=== PATIENT | female | born 1995 | race African-American/Black ===

== ENCOUNTER 2018-07-22 16:33 | Inpatient (IN) | payer OTHER ==
[2018-07-22] MEDS ORDERED: SODIUM CHLORIDE 1,000 ML IV STA (16:40)
[2018-07-22] MEDS ORDERED: KETOROLAC TROMETHAMINE 30 MG/1 ML VIAL IVPUSH ONE (16:40)
[2018-07-22] MEDS ORDERED: ONDANSETRON 4 MG/2 ML VIAL IVPUSH ONE (16:40)
--- NOTE | 2018-07-22 16:42 | PDOC ---
Rapid Medical Evaluation Chief Complaint: Pain, Acute Time Seen by Provider: 07/22/18 16:39 Medical Evaluation: 07/22/18 16:40 Pt c/o: n/v/d/ mid abd pain x 1 day, similar s/s w/ family members Pt on brief exam: low grade temp, other vs stable Pt ordered for: labs Pt to proceed to the ED Discharge Disposition - Diagnosis Abdominal pain - Discharge Dispostion Condition at time of disposition: Stable - Referrals - Patient Instructions - Post Discharge Activity
--- NOTE | 2018-07-22 18:53 | PDOC ---
Attending Attestation - HPI HPI: 07/22/18 19:52 The patient is a 22 year old female with no PMH who presents to the ED with abdominal pain, multiple episodes of nonbloody, nonbilious vomit and multiple episodes of watery, NB loose stool since this morning. Patient localizes the abdominal pain in the epigastric area and right upper quadrant, sharp in nature , and intermittent. Denies recent travel or sick contact. Allergy: Tylenol Surgical: None reported. Social: Social EtOH use. No reported drug or cigarette use. PMD: Dr. Markel Bautista - Physicial Exam PE: 07/22/18 19:49 ADULT PHYSICAL EXAM Constitutional: Awake, alert, oriented. No acute distress. Head: Normocephalic. Atraumatic Eyes: PERRL. EOMI. Conjunctivae are not pale. ENT: (+) Dry mucous membranes. Posterior pharynx without exudates or erythema. Uvula midline. Neck: Supple. Full ROM. No lymphadenopathy. Cardiovascular: (+) Tachycardic. Regular rhythm. S1, S2 regular. Distal pulses are 2+ and symmetric. Pulmonary/Chest: No evidence of respiratory distress. Clear to auscultation bilaterally No wheezing, rales or rhonchi. Abdominal: Soft, acutely tender in the epigastric area and right upper quadrant. No peritoneal signs. (+) Positive Etienne's sign. No rebound, guarding or rigidity. No organomegaly. No palpable masses. Good bowel sounds. Back: No CVA tenderness. Musculoskeletal: No edema. No cyanosis. No clubbing. Full range of motion in all extremities. Nocalf tenderness. Radial/pedal pulses are intact and 2+ bilaterally Skin: Skin is warm and dry. No petechiae. No purpura. Neurological: Alert and oriented to person, place, and time. Cranial nerves II -XII are grossly intact. Normal speech. Strength is grossly symmetric. No sensory deficits. Psychiatric: Good eye contact. Normal interaction, affect and behavior. <Argelia Betancourt - Last Filed: 07/22/18 19:58> - Resident Resident Name: Agustina Huber - ED Attending Attestation I have performed the following: I have examined & evaluated the patient, The case was reviewed & discussed with the resident, I agree w/resident's findings & plan, Exceptions are as noted - Medical Decision Making 07/22/18 18:53 I, Dr. Sofie Eaton, DO, attest that this document has been prepared under my direction and personally reviewed by me in its entirety. I further attest, that it accurately reflects all work, treatment, procedures and medical decision -making performed by me. 07/22/18 19:27 a/p: 22yo female with n/v/d today -last po intake was last night -pt with nbnb vomitus and nb diarrhea -RUQ ttp on exam, +murphys -bedside ultrasound +gallstones and sonographic murphys -will obtain official ultrasound -labs -npo -ivf hydration 07/22/18 21:22 pt with gallstones and mildly elevated ast case discussed with Dr. Arnold who has seen the patient and admits her to his service <Sofie Eaton - Last Filed: 07/22/18 21:28>
--- NOTE | 2018-07-22 19:00 | PDOC ---
History of Present Illness - General Chief Complaint: Pain, Acute Stated Complaint: SENT BY PCP Time Seen by Provider: 07/22/18 16:39 - History of Present Illness Initial Comments: 07/22/18 18:51 The patient is a 22 year old female with no reported significant PMH who presents to the ED c/o acute onset of abdominal pain. Pain started this morning when patient woke up and is sharp/punching, epigastric without any radiation. Endorses six episodes of NBNB emesis as well as multiple episodes of watery loose non-bloody stools. The patient denies chest pain, shortness of breath. The patient denies numbness/tingling. The patient denies cough, sore throat, runny nose, headache. Allergy: Tylenol (edema) Surgical: C/S Social: social alcohol denies other toxic habits PMD: Dr. Markel Bautista M.D. Past History - Past Medical History Allergies/Adverse Reactions: Allergies Allergy/AdvReac Type Severity Reaction Status Date / Time acetaminophen Allergy Severe Swelling Verified 07/22/18 19:18 Home Medications: Ambulatory Orders NK [No Known Home Medication] 07/22/18 - Suicide/Smoking/Psychosocial Hx Smoking History: Never smoked Have you smoked in the past 12 months: No Information on smoking cessation initiated: No Hx Alcohol Use: No Drug/Substance Use Hx: No Review of Systems - Review of Systems Constitutional: No: Chills, Fever HEENTM: No: Recent change in vision Respiratory: No: Cough, Shortness of Breath Cardiac (ROS): No: Lightheadedness, Palpitations, Syncope ABD/GI: Yes: Diarrhea, Nausea, Vomiting, Abdominal cramping. No: Constipated : No: Burning, Dysuria *Physical Exam - Vital Signs Last Vital Signs Temp Pulse Resp BP Pulse Ox 100.0 F H 104 H 18 124/83 100 07/22/18 16:39 07/22/18 16:39 07/22/18 16:39 07/22/18 16:39 07/22/18 16:39 - Physical Exam General Appearance: Yes: Nourished, Appropriately Dressed HEENT: positive: Normal Voice, Hearing Grossly Normal Neck: positive: Trachea midline, Supple Respiratory/Chest: positive: Lungs Clear, Normal Breath Sounds. negative: Rapid RR, Crackles, Rales, Stridor, Wheezing Cardiovascular: positive: S1, S2. negative: Edema, JVD Gastrointestinal/Abdominal: positive: Soft, Other (Epigastric & RUQ TTP, (+) sonographic Etienne's sign). negative: Guarding, Rebound ED Treatment Course - LABORATORY CBC & Chemistry Diagram: 07/22/18 19:05 07/22/18 17:54 - ADDITIONAL ORDERS Additional order review: 07/22/18 17:54 RBC Cancelled MCV Cancelled MCHC Cancelled RDW Cancelled MPV Cancelled Neutrophils % Cancelled Lymphocytes % Cancelled Monocytes % Cancelled Eosinophils % Cancelled Basophils % Cancelled Medical Decision Making - Medical Decision Making 07/22/18 19:44 22 year old female with abdominal pain. Febrile (100) and tachycardic (HR 104) @ presentation. Epigastric, RUQ TTP, (+) Etienne's sign on PE and sonographically. Bedside U/S shows cholelithiasis. Will obtain formal GB ultrasound. Also consider viral gastroenteritis, early appendicitis, pancreatitis. IV Fluids, Motrin for fever (patient Tylenol allergic), Morphine for pain. Reassess. 07/22/18 21:02 GB ultrasound shows 1.22 cm stone, normal sized CBD Patient reassessed @ bedside, pain improved. Dr. Arnold in ED, will evaluate patient in bedside 07/22/18 21:21 Patient to OR tomorrow 07/22/18 21:41 Patient reassessed @ bedside Counseled on plan of care Case d/w with patient's mother in law, Amairani, with patient @ bedside Patient admitted to Dr. Arnold, Med-Surg, Cefoxitin, NPO @ midnight *DC/Admit/Observation/Transfer Diagnosis at time of Disposition: Abdominal pain - Discharge Dispostion Condition at time of disposition: Stable - Referrals Referrals: Markel Bautista MD [Primary Care Provider] - - Patient Instructions - Post Discharge Activity
[2018-07-22 19:03] LABS: ALBUMIN 3.9 g/dl (3.4-5.0); ALK PHOS 104 U/L (45-117); ANION GAP 6 MMOL/L (8-16); BILIRUBIN,TOTAL 0.8 mg/dL (0.2-1); BLOOD UREA NITROGEN 13 mg/dL (7-18); CALCIUM 8.9 mg/dL (8.5-10.1); CHLORIDE 106 mmol/L (98-107); CO2 23 mmol/L (21-32); CREATININE 0.9 mg/dL (0.55-1.3); GLUCOSE,RANDOM 89 mg/dL (74-106); LIPASE 58 U/L (73-393); POTASSIUM 5.6 mmol/L (3.5-5.1); SGOT/AST 59 U/L (15-37); SGPT/ALT 30 U/L (13-61); SODIUM 135 mmol/L (136-145); TOT PROT 8.2 g/dl (6.4-8.2)
[2018-07-22] MEDS ORDERED: morphine CARPU-JECT 2 MG/1 ML DISP.SYRIN IVPUSH ONE (19:06)
[2018-07-22] MEDS ORDERED: ACETAMINOPHEN 1000 MG/100 ML VIAL (NON FORMULARY) IVPB ONE (19:07)
[2018-07-22] MEDS ORDERED: MORPHINE SULFATE 2 MG/ML VIAL ONE ×2 (19:11→22:36)
[2018-07-22] MEDS ORDERED: ONDANSETRON 4 MG/2 ML VIAL ONE (19:11)
[2018-07-22] MEDS ORDERED: ACETAMINOPHEN INJECTION 100 ML IVPB ONE (19:11)
[2018-07-22 19:18] LABS: BASO % 0.5 % (0-2.0); EOS % 0.2 % (0-4.5); HEMATOCRIT 43.4 % (32.4-45.2); HEMOGLOBIN 14.7 GM/dL (10.7-15.3); LYMPH % 3.6 % (8-40); MCH 30.4 pg (25.7-33.7); MCHC 33.8 g/dl (32.0-36.0); MEAN PLT VOLUME 9.4 fl (7.5-11.1); MONO % 5.7 % (3.8-10.2); PLATELET COUNT 241 K/MM3 (134-434); RBC 4.82 M/mm3 (3.60-5.2); WHITE BLOOD COUNT 9.4 K/mm3 (4.0-10.0)
[2018-07-22 19:29] LABS: HCG,QUALITATIVE URINE Negative
[2018-07-22 21:25] LABS: URINE APPEARANCE CLEAR; URINE COLOR YELLOW
[2018-07-22 21:26] LABS: PH,URINE 5.5 (5.0-8.0); URINE BILIRUBIN NEGATIVE (NEGATIVE); URINE GLUCOSE (UA) NEGATIVE (NEGATIVE); URINE KETONE 40 mg/dl (NEGATIVE); URINE NITRITE NEGATIVE (NEGATIVE); URINE PROTEIN TRACE (NEGATIVE)
[2018-07-22 21:27] LABS: URINE LEUK ESTERASE SMALL (NEGATIVE)
[2018-07-22] MEDS ORDERED: CEFOXITIN SODIUM 2 GM in DEXTROSE 5%-WATER - 100 ML IVPB ONE (21:29)
[2018-07-22] MEDS ORDERED: CEFOXITIN SODIUM/DEXTROSE,ISO 2 GM/50 ML BAG IVPB ONE (21:42)
--- NOTE | 2018-07-22 21:55 | HP ---
Admitting History and Physical - Admission Chief Complaint: abdominal pain History of Present Illness: 22 yo female PMH obesity presents to the ED complaining of acute onset of abdominal pain for 1 day. Pain started this morning when patient woke up and is sharp/punching, RUQ and epigastric without any radiation. she reports a long standing episodic pain associated with meals she attributed to gas pain. Similar severe episode prompted a visit to [facility] but she was discharged without imaging on a H2 marilyn. She endorses six episodes of NBNB emesis as well as multiple episodes of watery loose non-bloody stools. US showed a large stone at the neck of GB. We were called to assess. History Source: Patient, Medical Record Limitations to Obtaining History: No Limitations - Past Medical History Hepatobiliary: Yes: Cholelithiasis ...LMP: 03/23/18 ...: No Psych: Yes: Depression Additional Past Medical History: obesity - Past Surgical History Past Surgical History: Yes: - Smoking History Smoking history: Never smoked Have you smoked in the past 12 months: No - Alcohol/Substance Use Hx Alcohol Use: No History of Substance Use: reports: None - Social History ADL: Independent History of Recent Travel: No Home Medications - Allergies Allergies/Adverse Reactions: Allergies Allergy/AdvReac Type Severity Reaction Status Date / Time acetaminophen Allergy Severe Swelling Verified 07/22/18 19:18 - Home Medications Home Medications: Ambulatory Orders NK [No Known Home Medication] 07/22/18 Physical Examination Vital Signs: Vital Signs Temperature 100.0 F H 07/22/18 16:39 Pulse Rate 104 H 07/22/18 16:39 Respiratory Rate 18 07/22/18 16:39 Blood Pressure 124/83 07/22/18 16:39 O2 Sat by Pulse Oximetry (%) 100 07/22/18 16:39 Constitutional: Yes: No Distress, Calm, Obese Eyes: Yes: Conjunctiva Clear, EOM Intact HENT: Yes: Atraumatic, Normocephalic Neck: Yes: Supple, Trachea Midline Cardiovascular: Yes: Regular Rate and Rhythm, S1, S2 Respiratory: Yes: Regular, CTA Bilaterally Gastrointestinal: Yes: Normal Bowel Sounds, Soft, Abdomen, Obese, Tenderness ( RUQ exquites tenderness with +murphys sign), Vomiting. No: Ascites, Distention , Hernia ...Rectal Exam: No: Guaiac Positive, Guaiac Trace Renal/: No: CVA Tenderness - Left, CVA Tenderness - Right Musculoskeletal: No: Muscle Pain, Muscle Weakness Extremities: No: Cool, Cyanosis Edema: No Peripheral Pulses WNL: Yes Peripheral Pulses: Left Radial: 2+, Right Radial: 2+, Left Doralis Pedis: 2+, Right Dorsalis Pedis: 2+, Left Femoral: 2+, Right Femoral: 2+ Integumentary: No: Jaundice, Rash, Skin Tear Neurological: Yes: Alert, Oriented Psychiatric: Yes: Alert, Oriented Labs: CBC, BMP 07/22/18 19:05 07/22/18 17:54 Imaging - Results Ultrasound: Report Reviewed, Image Reviewed (large gallstone 1.2cm, no stigmata of acute cholecystits) Problem List - Problems (1) Calculus of bile duct w/o obstruction, cholangitis, or cholecystitis Assessment/Plan: 22 yo female with Biliary colic, intractable RUQ abdominal pain with nausea and vomiting NPO and IVF hydration IV antibiotics antiematic therapy Adequate analgesia OR for Laparoscopic Cholecystectomy Discussed with patient risks, benefits and alternatives of laparoscopic possible open cholecystectomy, including but not limited to bleeding, infection , injury to adjacent structures, leak or injury, intraabdominal abscess, incisional hernia, need for further procedures, ; alternatives include antibiotics, delayed or no surgery - risks of this include failure of nonoperative therapy, perforation, sepsis, recurrence, . Patient desires to proceed with operation - will take to OR for above. Informed consent signed for same. Code(s): K80.50 - CALCULUS OF BILE DUCT W/O CHOLANGITIS OR CHOLECYST W/O OBST (2) RUQ abdominal pain Code(s): R10.11 - RIGHT UPPER QUADRANT PAIN (3) Nausea and vomiting Code(s): R11.2 - NAUSEA WITH VOMITING, UNSPECIFIED Qualifiers: Vomiting type: bilious vomiting Qualified Code(s): R11.14 - Bilious vomiting (4) Obesity (BMI 30.0-34.9) Code(s): E66.9 - OBESITY, UNSPECIFIED (5) History of delivery Code(s): Z98.891 - HISTORY OF UTERINE SCAR FROM PREVIOUS SURGERY
[2018-07-22] MEDS ORDERED: ACETAMINOPHEN 325 MG TABLET (FP) PO PRN (21:56)
[2018-07-22] MEDS ORDERED: morphine SULFATE 4 MG/ML VIAL IVPUSH PRN (21:56)
[2018-07-22] MEDS ORDERED: IBUPROFEN 600 MG TABLET (FP) PO PRN (21:56)
[2018-07-22] MEDS ORDERED: ONDANSETRON 4 MG/2 ML VIAL IVPUSH PRN (21:56)
[2018-07-22 22:07] LABS: URINE BACTERIA 3+ /hpf (NEGATIVE); URINE WBC 0-3 /hpf (0-5)
[2018-07-22] MEDS: SODIUM CHLORIDE 1,000 ML IV SCH (22:26)
[2018-07-23] MEDS ORDERED: IBUPROFEN 600 MG TABLET (FP) PO ONE (02:06)
[2018-07-23] MEDS: SODIUM CHLORIDE 1,000 ML IV SCH ×2 (02:51→17:30)
[2018-07-23 03:47] VITALS: BMI 34.4
[2018-07-23] MEDS ORDERED: CEFOXITIN SODIUM/DEXTROSE,ISO 2 GM/50 ML BAG IVPB ONE (05:00)
[2018-07-23 06:54] LABS: HEMATOCRIT 37.4 % (32.4-45.2); HEMOGLOBIN 12.7 GM/dL (10.7-15.3); MCH 30.3 pg (25.7-33.7); MCHC 34.1 g/dl (32.0-36.0); MEAN CELL VOLUME 89.1 fl (80-96); MEAN PLT VOLUME 9.1 fl (7.5-11.1); PLATELET COUNT 206 K/MM3 (134-434); RBC 4.19 M/mm3 (3.60-5.2); RDW 12.8 % (11.6-15.6); WHITE BLOOD COUNT 6.4 K/mm3 (4.0-10.0)
[2018-07-23 07:13] LABS: INR 1.27 (0.83-1.09)
[2018-07-23 07:33] LABS: ALBUMIN 3.1 g/dl (3.4-5.0); ALK PHOS 80 U/L (45-117); ANION GAP 7 MMOL/L (8-16); BILIRUBIN,TOTAL 0.9 mg/dL (0.2-1); BLOOD UREA NITROGEN 11 mg/dL (7-18); CALCIUM 7.8 mg/dL (8.5-10.1); CHLORIDE 107 mmol/L (98-107); CO2 23 mmol/L (21-32); CREATININE 0.7 mg/dL (0.55-1.3); GLUCOSE,RANDOM 91 mg/dL (74-106); LIPASE 67 U/L (73-393); POTASSIUM 3.7 mmol/L (3.5-5.1); SGOT/AST 13 U/L (15-37); SGPT/ALT 19 U/L (13-61); SODIUM 136 mmol/L (136-145); TOT PROT 6.2 g/dl (6.4-8.2)
[2018-07-23] MEDS ORDERED: BUPIVACAINE HCL/PF 0.5% (5MG/ML) 10 ML VIAL ONE (13:19)
[2018-07-23] MEDS ORDERED: BENZOIN TINCTURE SWABSTICK TP ONE (13:19)
[2018-07-23] MEDS ORDERED: PROPOFOL 20 ML ONE (14:03)
[2018-07-23] MEDS ORDERED: MIDAZOLAM HCL 2 MG/2 ML SINGLE DOSE VIAL ONE (14:03)
[2018-07-23] MEDS ORDERED: SUCCINYLCHOLINE CHLORIDE 200 MG/10 ML VIAL ONE (14:03)
[2018-07-23] MEDS ORDERED: MAGNESIUM SULF 50% (8.12 MEQ/2 ML-1 GM VIAL) ONE (14:07)
[2018-07-23] MEDS ORDERED: IBUPROFEN 800 MG/8 ML IJ IVPB ONE (14:15)
[2018-07-23] MEDS ORDERED: DEXMEDETOMIDINE HCL 200 MCG/2 ML IVPB ONE (14:15)
[2018-07-23] MEDS ORDERED: CEFOXITIN SODIUM 2 GM IVPB ONE (14:24)
[2018-07-23] MEDS ORDERED: GLYCOPYRROLATE 0.2 MG/1 ML VIAL ONE ×2 (15:25)
[2018-07-23] MEDS ORDERED: NEOSTIGMINE METHYLSULFATE 0.5 MG/ML - 10 ML MDV ONE (15:26)
[2018-07-23] MEDS ORDERED: BUPIVACAINE HCL/PF (5 MG/ML) 30 ML VIAL IJ ONE ×3 (15:30)
--- NOTE | 2018-07-23 15:49 | OP ---
Operative Note - Note: Operative Date: 07/23/18 Pre-Operative Diagnosis: Biliary colic, symptomatic cholelithiasis Operation: laparoscopic cholecystectomy Findings: small gall bladder with large stone Post-Operative Diagnosis: Same as Pre-op Surgeon: Doni Arnold Adobe Layer: Darek Osuna Anesthesiologist/SHIP STEWARD: Jann Grace Anesthesia: General, Local (0.5% marcaine 20ml) Estimated Blood Loss (mls): 10 Fluid Volume Replaced (mls): 1,100 Operative Report Dictated: Yes
[2018-07-23] MEDS ORDERED: IBUPROFEN 600 MG TABLET (FP) PO PRN (16:58)
[2018-07-23] MEDS ORDERED: morphine SULFATE 4 MG/ML VIAL ONE (17:04)
[2018-07-23] MEDS: morphine SULFATE 4 MG/ML VIAL IVPUSH PRN ×2 (17:05→21:07)
[2018-07-23] MEDS: ONDANSETRON 4 MG/2 ML VIAL IVPUSH PRN (21:07)
[2018-07-24] MEDS: morphine SULFATE 4 MG/ML VIAL IVPUSH PRN ×2 (01:11→06:52)
[2018-07-24] MEDS: SODIUM CHLORIDE 1,000 ML IV SCH (06:52)
--- NOTE | 2018-07-24 07:57 | DS ---
Physical Examination Vital Signs: Vital Signs Temperature 99.2 F 07/24/18 02:15 Pulse Rate 92 H 07/24/18 02:15 Respiratory Rate 20 07/24/18 02:15 Blood Pressure 119/70 07/24/18 02:15 O2 Sat by Pulse Oximetry (%) 100 07/23/18 21:00 Vital Signs Period Temp Pulse Resp BP Sys/Jean Pulse Ox Last 24 Hr 97.8 F-99.4 F 74-92 17-20 114-119/59-70 100-100 Findings/Remarks: patient was stable overnight, tolerated diet, reported itching after morphine. Constitutional: Yes: Well Nourished, No Distress, Calm Eyes: Yes: Conjunctiva Clear, EOM Intact HENT: Yes: Atraumatic, Normocephalic Neck: Yes: Supple, Trachea Midline Cardiovascular: Yes: Regular Rate and Rhythm, S1, S2 Respiratory: Yes: Regular, CTA Bilaterally Gastrointestinal: Yes: Normal Bowel Sounds, Soft ...Rectal Exam: Yes: Deferred Renal/: No: CVA Tenderness - Left, CVA Tenderness - Right Breast(s): No: Dimpling, Mass Musculoskeletal: No: Joint Swelling, Muscle Pain, Muscle Weakness Extremities: No: Cool, Cyanosis Edema: No Peripheral Pulses WNL: Yes Peripheral Pulses: Left Radial: 2+, Right Radial: 2+, Left Doralis Pedis: 2+, Right Dorsalis Pedis: 2+, Left Femoral: 2+, Right Femoral: 2+ Integumentary: No: Jaundice, Rash, Skin Tear Neurological: Yes: Alert, Oriented Psychiatric: Yes: Alert, Oriented Labs: CBC, BMP 07/23/18 06:00 07/23/18 06:00 Discharge Summary Reason For Visit: CHOLECYSTITIS Current Active Problems Abdominal pain (Acute) Calculus of bile duct w/o obstruction, cholangitis, or cholecystitis (Acute) History of delivery (Acute) Nausea and vomiting (Acute) Obesity (BMI 30.0-34.9) (Acute) RUQ abdominal pain (Acute) Procedures: Principal: laparoscopic cholecystetcomy Hospital Course: admitted from ED for urgent surgery. uneventful procedure. stable for discharge home Condition: Improved - Instructions Diet, Activity, Other Instructions: Postoperative instructions: You had a laparoscopic cholecystectomy on 07/23/[address] Doni Arnold of [facility]. Activity: Resume your usual activities gradually, but no heavy exertion or lifting more than 10-15 pounds for 1 month. Remove dressings 48 hours after surgery; sticky tapes underneath will fall off by themselves. You may shower daily starting then, just pat the incision areas dry. No bath or swimming until skin incisions have healed. Eat lightly at first, but advance to your usual diet as tolerated. Pain: For pain, you may use and alternate Tylenol (acetaminophen) 1-2 pills and/ or ibuprofen 200 mg (1-3 pills) every 6 hours each as needed; this means that you can take one OR the other at 3-hour intervals. If you are prescribed a Tylenol/narcotic combination for severe pain, use it instead of plain Tylenol as needed and switch back when your pain starts decreasing. Do not take more than 4000mg of acetaminophen in a day. Take medications as prescribed or indicated on the labeling. Follow-up: Call Dr. Arnold' office at [phone] to make your postop appointment (Friday in approximately 2 weeks after surgery). Clinic is held in the [facility] on the first floor of [facility]. Call the office if you have: * increasing pain not responsive to pain medication * fever of 101F or higher * vomiting * unusual or increasing bleeding or drainage from wounds * increasing redness or swelling at wound sites * inability to urinate Also, see your primary medical doctor within 1-2 weeks. Disposition: HOME - Home Medications Comprehensive Discharge Medication List: Ambulatory Orders Amox-Tr/K Cl [Augmentin - 875Mg Tablet] 1 tab PO BID #14 tablet 07/23/18 Oxycodone HCl 5 mg PO Q6H PRN 3 Days #40 tablet MDD 5 07/23/18
[2018-07-24] MEDS ORDERED: diphenhydrAMINE HCL 25 MG CAPSULE (FP) PO ONE (08:48)
[2018-07-24] MEDS: ONDANSETRON 4 MG/2 ML VIAL IVPUSH PRN (10:52)
[2018-07-24 11:56] VITALS: BP 116/63; PULSE 75; TEMP 99.4
--- NOTE | 2018-07-25 09:21 | OP ---
DATE OF OPERATION: 07/23/2018 PREOPERATIVE DIAGNOSIS: Biliary colic, symptomatic cholelithiasis, chronic cholecystitis. POSTOPERATIVE DIAGNOSIS: Biliary colic, symptomatic cholelithiasis, chronic cholecystitis. PROCEDURE: Laparoscopic cholecystectomy. ATTENDING SURGEON: Doni Arnold MD COMMISSARY SUPERINTENDENT: Darek Osuna MD ANESTHESIA: Jann Grace CRNA ANESTHESIA TYPE: General with local. Local consisted of 0.5% Marcaine a total of 20 mL given to the port sites. ESTIMATED BLOOD LOSS: 10 mL. IV FLUID ADMINISTERED: 1100 mL. SPECIMEN: Small gallbladder with stone. BRIEF FINDINGS: The patient had a small gallbladder thin walled with a large stone. INDICATIONS: The patient is a 22-year-old female presenting with a history of multiple episodes of biliary colic and unremitting symptomatic cholelithiasis, which was evaluated on ultrasound and noted to have a stone impact at the neck. She was counseled regarding risks, benefits, and alternatives to removal of the gallbladder. She signed informed consent and was taken for the procedure. DESCRIPTION OF PROCEDURE: The patient was brought to the operating room. She was placed in supine position on the operating room table with the left arm extended at 90 degrees perpendicular to the body's midline axis and the right arm tucked. The lower extremity had SCDs placed. The patient was induced with general anesthesia and endotracheally intubated without incident by Anesthesia. We began first with an anterior abdominal wall clip, prep, and drape in standard surgical fashion. The patient then had a formal time-out identifying the operative site and procedure. With this complete, we began with a supraumbilical approach Vivian entry into the abdomen inscribed on the skin and incised with a 15-blade scalpel. It was deepened and widened then through the subcutaneous tissue with Bovie cautery to the midline fascia, which was elevated, and 0 Vicryl was then laid in as a figure of eight. A blunt entry was made into the abdomen using a clamp, and a 12-mm Vivian was then put into the abdomen, and pneumoperitoneum was established to 15 mmHg. We began first with inspection of the port entry site, which appeared atraumatic. The gallbladder itself appeared collapsed and walled in the right upper quadrant. This was identified. Additional ports were placed at the subxiphoid position and 2 in the right lateral abdomen. The gallbladder was then retracted cranially and towards the left shoulder, and the infundibulum was retracted towards the right abdomen. With this, the cystic structures could easily be identified. Planes were developed to isolate the cystic duct and artery. They were identified and then 5-mm clips were placed to allow for transection. Endo Martínez were used to transect both structures after the critical view of safety was identified on the hepatic plate. After the cystic structures were controlled, the gallbladder was elevated from the hepatic bed on segments 4 and 5 of the liver. This was done towards the dome and then the gallbladder was retrieved from the abdomen using an EndoCatch bag, a size 10 mm from the umbilical port after reciting to the subxiphoid position with the camera. After retrieval of the gallbladder, it was passed off for final pathologic diagnosis. The liver bed was then inspected for hemostasis and obtained with Bovie cautery where appropriate. The site was suctioned of bloody effluent and then the trocars were removed under direct visualization, and pneumoperitoneum was relieved. With the pneumoperitoneum relieved, the umbilical port was ablated with the figure of eight that was laid in preoperatively. The sites were then irrigated. Additional local anesthetic was placed at the port sites for pain control, and the skin was closed using 4-0 Monocryl in interrupted fashion and subcuticular fashion at the umbilicus. Sterile dressing, which was comprised of Dermabond, was placed on the skin. The patient was awoken from general anesthesia having tolerated the procedure well. She was returned to recovery in stable condition. MD VENANCIO Shepard/[id number]
--- NOTE | 2018-07-27 18:50 | PATH ---
Surgical Pathology Report Patient Name: TUCKER CLARK Med. Rec. #: [id number] /Age/Gender: 1995 (Age: 22) / F Account: [id number] Location: [facility] MED/SURG Taken: 07/23/2018 Received: 07/24/2018 Reported: 07/27/2018 Physicians: Doni Arnold M.D. Specimen(s) Received GALLBLADDER Clinical History Cholecystitis, biliary colic, chronic cholecystitis Final Diagnosis GALLBLADDER, LAPAROSCOPIC CHOLECYSTECTOMY: CHRONIC CHOLECYSTITIS WITH CHOLELITHIASIS. Electronically Signed Carlie Puente M.D. Gross Description Received in formalin, labeled "gallbladder," is a 5.0 x 3.3 x 3.3 cm. gallbladder with a 0.2 cm. in length portion of cystic duct attached. The outer surface is green and varies from smooth to shaggy. The lumen contains green, tenacious bile as well as 3 yellow, spherical, bosselated choleliths averaging 0.4 cm in diameter. The mucosa is dark green and velvety. The wall of the gallbladder measures 0.1 cm. in thickness. Developer Architect sections are submitted in one cassette. 07/25/2018 [facility]07/25/2018
== END 2018-07-24 11:45 | disposition home or self-care (01) | DRG 263 ==
LOC: JER 16:33 → JERBED 21:21 → OBSVTOIN 21:56 → J7W 07-23 02:38
PROC: 0FT44ZZ Resection of Gallbladder, Percutaneous Endoscopic Approach (ICD-10-PCS; principal; 2018-07-23 15:00)
DX: K80.44 Calculus of bile duct with chronic cholecystitis without obstruction (principal); F32.9 Major depressive disorder, single episode, unspecified; E66.9 Obesity, unspecified; Z68.34 Body mass index [BMI] 34.0-34.9, adult; R10.11 Right upper quadrant pain; R11.14 Bilious vomiting; Z98.891 History of uterine scar from previous surgery
CPT/HCPCS: 36415; 76705-TC; 80053; 81003; 83605; 83690; 84703; 85025; 85027; 85610; 86850; 86900; 86901; 87086; 88304-TC; 94760; 99285-25; G0378; J7030

== ENCOUNTER 2018-12-24 16:55 | Emergency (ER) | payer OTHER ==
[2018-12-24 17:14] VITALS: BP 124/65; PULSE 84; TEMP 98.9; BMI 36.7
--- NOTE | 2018-12-24 17:14 | PDOC ---
Rapid Medical Evaluation Chief Complaint: Nausea/Vomiting Time Seen by Provider: 12/24/18 17:11 Medical Evaluation: Allergies Allergy/AdvReac Type Severity Reaction Status Date / Time acetaminophen Allergy Severe Swelling Verified 07/22/18 19:18 12/24/18 17:12 23 year old female c/o NVD and epigastric area pain for one week. PE" patient alert ox3, epIGASTRIC AND RUQ area pain A: ABDOMINAL PAIN P: labs UA urine culture Discharge Disposition - Diagnosis Abdominal pain Qualifiers: Abdominal location: unspecified location Qualified Code(s): R10.9 - Unspecified abdominal pain - Referrals - Patient Instructions - Post Discharge Activity
[2018-12-24] MEDS ORDERED: SODIUM CHLORIDE 1,000 ML IV STA (18:22)
[2018-12-24] MEDS ORDERED: MAG HYDROX/AL HYDROX/SIMETH 30 ML UNIT-DOSE CUP PO ONE (18:22)
[2018-12-24] MEDS ORDERED: ONDANSETRON 4 MG/2 ML VIAL IVPUSH ONE (18:22)
[2018-12-24] MEDS ORDERED: FAMOTIDINE 20 MG/50 ML IVPB 20 MG/50 ML MG IVPB ONE ×2 (18:22→19:14)
[2018-12-24 19:13] LABS: EOS % 1.6 % (0-4.5); HEMATOCRIT 40.6 % (32.4-45.2); HEMOGLOBIN 13.3 GM/dL (10.7-15.3); LYMPH % 29.9 % (8-40); MCH 29.6 pg (25.7-33.7); MCHC 32.8 g/dl (32.0-36.0); MEAN CELL VOLUME 90.2 fl (80-96); MEAN PLT VOLUME 9.3 fl (7.5-11.1); MONO % 9.6 % (3.8-10.2); NEUT % 57.9 % (42.8-82.8); PLATELET COUNT 283 K/MM3 (134-434); RDW 13.3 % (11.6-15.6); WHITE BLOOD COUNT 9.3 K/mm3 (4.0-10.0)
[2018-12-24] MEDS ORDERED: MAG HYDROX/AL HYDROX/SIMETH 30 ML UNIT-DOSE CUP ONE (19:13)
[2018-12-24] MEDS ORDERED: ONDANSETRON 4 MG/2 ML VIAL ONE (19:14)
[2018-12-24 19:36] LABS: URINE APPEARANCE CLEAR; URINE BILIRUBIN NEGATIVE (NEGATIVE); URINE COLOR YELLOW; URINE GLUCOSE (UA) NEGATIVE (NEGATIVE); URINE KETONE NEGATIVE (NEGATIVE); URINE LEUK ESTERASE NEGATIVE (NEGATIVE); URINE NITRITE NEGATIVE (NEGATIVE); URINE PROTEIN NEGATIVE (NEGATIVE); URINE UROBILINOGEN 0.2 mg/dL (0.2-1.0)
[2018-12-24 19:50] LABS: ALBUMIN 3.7 g/dl (3.4-5.0); BILIRUBIN,TOTAL 0.5 mg/dL (0.2-1); BLOOD UREA NITROGEN 9.6 mg/dL (7-18); CALCIUM 9.1 mg/dL (8.5-10.1); CREATININE 0.9 mg/dL (0.55-1.3); POTASSIUM 4.6 mmol/L (3.5-5.1); TOT PROT 7.3 g/dl (6.4-8.2)
--- NOTE | 2018-12-24 20:26 | PDOC ---
History of Present Illness - General Chief Complaint: Nausea/Vomiting Stated Complaint: NAUSEA/ABD PAIN Time Seen by Provider: 12/24/18 17:11 History Source: Patient Exam Limitations: No Limitations Past History - Past Medical History Allergies/Adverse Reactions: Allergies Allergy/AdvReac Type Severity Reaction Status Date / Time acetaminophen Allergy Severe Swelling Verified 12/24/18 17:12 Home Medications: Ambulatory Orders NK [No Known Home Medication] 12/24/18 COPD: No - Surgical History Cholecystectomy: Yes - Immunization History Immunization Up to Date: Yes - Suicide/Smoking/Psychosocial Hx Smoking History: Never smoked Have you smoked in the past 12 months: No Hx Alcohol Use: No Drug/Substance Use Hx: No *Physical Exam - Vital Signs Last Vital Signs Temp Pulse Resp BP Pulse Ox 98.9 F 84 16 124/65 99 12/24/18 17:12 12/24/18 17:12 12/24/18 17:12 12/24/18 17:12 12/24/18 17:12 - Physical Exam General Appearance: No: Apparent Distress Respiratory/Chest: positive: Lungs Clear, Normal Breath Sounds. negative: Respiratory Distress Cardiovascular: positive: Regular Rhythm, Regular Rate, S1, S2. negative: Murmur Gastrointestinal/Abdominal: positive: Tender (mild along epigastric/RUQ pain), Soft. negative: Distended, Guarding, Rebound, Hernia, Mass Musculoskeletal: negative: CVA Tenderness Neurologic: positive: Alert, Normal Mood/Affect ED Treatment Course - LABORATORY CBC & Chemistry Diagram: 12/24/18 18:58 12/24/18 18:58 - ADDITIONAL ORDERS Additional order review: Laboratory Results 12/24/18 12/24/18 12/24/18 18:58 18:58 18:58 Sodium 139 Potassium 4.6 Chloride 106 Carbon Dioxide 29 Anion Gap 5 L BUN 9.6 Creatinine 0.9 Est GFR (CKD-EPI)AfAm 104.45 Est GFR (CKD-EPI)NonAf 90.12 Random Glucose 76 Calcium 9.1 Total Bilirubin 0.5 AST 41 H ALT 55 Alkaline Phosphatase 131 H Total Protein 7.3 Albumin 3.7 Lipase 94 Urine Color Yellow Urine Appearance Clear Urine pH 8.0 D Ur Specific [place] 1.013 Urine Protein Negative Urine Glucose (UA) Negative Urine Ketones Negative Urine Blood Negative Urine Nitrite Negative Urine Bilirubin Negative Urine Urobilinogen 0.2 Ur Leukocyte Esterase Negative Urine HCG, Qual Negative 12/24/18 18:58 RBC 4.50 MCV 90.2 MCHC 32.8 RDW 13.3 MPV 9.3 Neutrophils % 57.9 D Lymphocytes % 29.9 D Monocytes % 9.6 Eosinophils % 1.6 D Basophils % 1.0 - RADIOLOGY Radiology Studies Ordered: Category Date Time Status ABDOMEN US -LIMITED [US] Stat Ultrasound 12/24/18 18:22 Completed - Medications Given in the ED: ED Medications Discontinued Medications Generic Name Dose Route Start Last Admin Trade Name Freadore PRN Reason Stop Dose Admin Al Hydroxide/Mg Hydroxide 30 ml 12/24/18 18:22 12/24/18 19:35 Mylanta Oral Suspension - PO 12/24/18 18:23 30 ml ONCE ONE Administration Famotidine/Sodium Chloride 20 mg in 50 mls @ 100 mls/hr 12/24/18 18:22 19:35 Pepcid 20 Mg Premixed Ivpb - IVPB 12/24/18 18:51 100 mls/hr ONCE ONE Administration Sodium Chloride 1,000 mls @ 1,000 mls/hr 12/24/18 18:22 12/24/18 19:35 Normal Saline - IV 12/24/18 19:21 1,000 mls/hr ASDIR STA Administration Ondansetron HCl 4 mg 12/24/18 18:22 12/24/18 19:35 Zofran Injection IVPUSH 12/24/18 18:23 4 mg ONCE ONE Administration Medical Decision Making - Medical Decision Making 23 y/o F hx of cholecystectomy 07/2018, presents with upper abdominal pain occurring intermittently since her cholecystectomy done 07/2018, worsening last week. Also having intermittent watery diarrhea since her surgery. States had few episodes of NBNB emesis today. Has not followed up with surgeon, Dr. Arnold, since surgery. States she saw Dr. Osuna around August this year and was told to adjust diet that time. Denies fever, sob, cp, urinary complaints, recent travel, possible bad food exposure. Labs reviewed and unremarkable RUQ sono unremarkable as well Patient given Pepcid, maalox, zofran and IVF and feeling better Patient passed PO challenge Advised f/u with her surgeon 12/24/18 20:18 *DC/Admit/Observation/Transfer Diagnosis at time of Disposition: Abdominal pain Qualifiers: Abdominal location: unspecified location Qualified Code(s): R10.9 - Unspecified abdominal pain - Discharge Dispostion Disposition: HOME Condition at time of disposition: Improved Decision to Admit order: No - Referrals Referrals: Doni Arnold MD [Staff Physician] - 2 Days - Patient Instructions Printed Discharge Instructions: DI for Abdominal Pain-Adult Additional Instructions: Thank you for choosing [facility]. It was a pleasure taking care of you. Please follow-up with your surgeon, Dr. Arnold You may take Pepcid 20 mg twice a day Follow-up with your regular doctor as well Return to the Emergency Department if your symptoms worsen or persist, you have fever, shortness of breath, chest pain, severe abdominal pain, vomiting or other concerning symptoms. - Post Discharge Activity
== END 2018-12-24 21:12 | disposition home or self-care (01) ==
LOC: JER 16:55
PROC: 3E033GC Introduction of Other Therapeutic Substance into Peripheral Vein, Percutaneous Approach (ICD-10-PCS; principal; 2018-12-24)
PROC: 3E0337Z Introduction of Electrolytic and Water Balance Substance into Peripheral Vein, Percutaneous Approach (ICD-10-PCS; 2018-12-24)
DX: R10.9 Unspecified abdominal pain (principal)
CPT/HCPCS: 36415; 76705-TC; 80053; 81003; 83690; 84703; 85025; 99283-25; J7030

== ENCOUNTER 2019-03-30 15:18 | Emergency (ER) | payer OTHER ==
--- NOTE | 2019-03-30 15:27 | PDOC ---
Rapid Medical Evaluation Time Seen by Provider: 03/30/19 15:26 Medical Evaluation: Allergies Allergy/AdvReac Type Severity Reaction Status Date / Time acetaminophen Allergy Severe Swelling Verified 12/24/18 17:12 03/30/19 15:26 I have performed a brief in-person evaluation of this patient. The patient presents with a chief complaint of: abd pain since last night with V /D since this morning, 3 episodes of vomiting and countless episodes of diarrhea , LMP 03/01, hx of cholecystectomy Pertinent physical exam findings: epigastric tenderness I have ordered the following: urine, labs, zofran The patient will proceed to the ED for further evaluation. Discharge Disposition - Diagnosis Abdominal pain Qualifiers: Abdominal location: epigastric Qualified Code(s): R10.13 - Epigastric pain - Referrals - Patient Instructions - Post Discharge Activity
[2019-03-30] MEDS ORDERED: ONDANSETRON *ODT* 4 MG TABLET SL ONE (15:28)
[2019-03-30 15:33] VITALS: BMI 36.7
[2019-03-30 15:57] LABS: BASO % 0.2 % (0-2.0); EOS % 0.8 % (0-4.5); HEMATOCRIT 44.4 % (32.4-45.2); LYMPH % 7.6 % (8-40); MCH 30.4 pg (25.7-33.7); MCHC 33.8 g/dl (32.0-36.0); MEAN CELL VOLUME 89.8 fl (80-96); MEAN PLT VOLUME 9.4 fl (7.5-11.1); MONO % 7.4 % (3.8-10.2); PLATELET COUNT 223 K/MM3 (134-434); RBC 4.94 M/mm3 (3.60-5.2); RDW 12.9 % (11.6-15.6)
[2019-03-30 15:59] LABS: URINE APPEARANCE CLOUDY; URINE BILIRUBIN NEGATIVE (NEGATIVE); URINE COLOR YELLOW; URINE GLUCOSE (UA) NEGATIVE (NEGATIVE); URINE KETONE NEGATIVE (NEGATIVE); URINE LEUK ESTERASE NEGATIVE (NEGATIVE); URINE NITRITE NEGATIVE (NEGATIVE); URINE PROTEIN NEGATIVE (NEGATIVE)
[2019-03-30] MEDS ORDERED: SODIUM CHLORIDE 1,000 ML IV STA (16:09)
[2019-03-30] MEDS ORDERED: PANTOPRAZOLE SODIUM 40 MG VIAL IVPUSH ONE (16:10)
[2019-03-30] MEDS ORDERED: KETOROLAC TROMETHAMINE 30 MG/1 ML VIAL IVPUSH ONE (16:10)
[2019-03-30] MEDS ORDERED: ONDANSETRON *ODT* 4 MG TABLET ONE (16:11)
[2019-03-30] MEDS ORDERED: IBUPROFEN 800 MG/8 ML IJ IVPB ONE ×2 (16:13→16:15)
[2019-03-30] MEDS ORDERED: PANTOPRAZOLE SODIUM 40 MG VIAL ONE (16:15)
[2019-03-30 16:37] LABS: ALBUMIN 3.8 g/dl (3.4-5.0); BILIRUBIN,TOTAL 0.7 mg/dL (0.2-1); BLOOD UREA NITROGEN 11.9 mg/dL (7-18); CALCIUM 8.6 mg/dL (8.5-10.1); CREATININE 0.8 mg/dL (0.55-1.3); POTASSIUM 4.1 mmol/L (3.5-5.1); TOT PROT 7.6 g/dl (6.4-8.2)
--- NOTE | 2019-03-30 16:57 | PDOC ---
History of Present Illness - General Chief Complaint: Vomiting/Diarrhea Stated Complaint: VOMITING/DIARRHEA Time Seen by Provider: 03/30/19 15:26 History Source: Patient Exam Limitations: No Limitations - History of Present Illness Travel History: No Initial Comments: 03/30/19 16:15 23-year-old female presents to ED with complaints of nausea vomiting and upper abdominal pain since late last night. Patient states had went to [place] and had chicken sandwich, Bulgarian fries, and a milkshake. Patient states history of gallstones with cholecystectomy but denies any other GI history. Patient complaining of mild fatigue, chills, and 2 episodes of diarrhea. Timing/Duration: reports: intermittent Quality: reports: mild, cramping, sharpness Abdominal Pain Onset Location: reports: epigastric Pain Radiation: reports: no radiation Activities at Onset: reports: none Aggravating Factors: improves with: None Alleviating Factors: improves with: None Past History - Past Medical History Allergies/Adverse Reactions: Allergies Allergy/AdvReac Type Severity Reaction Status Date / Time acetaminophen Allergy Severe Swelling Verified 03/30/19 15:30 Home Medications: Ambulatory Orders Ondansetron HCl [Zofran] 4 mg PO TID PRN #12 tablet 03/30/19 COPD: No - Surgical History Cholecystectomy: Yes - Immunization History Immunization Up to Date: Yes - Psycho Social/Smoking Cessation Hx Smoking History: Unknown if ever smoked Have you smoked in the past 12 months: No Hx Alcohol Use: No Drug/Substance Use Hx: No Patient Lives Alone: No Lives with/in: parents Abd/GI Specific PMHX - Complaint Specific PMHX Gall Bladder Disease: Yes Review of Systems - Review of Systems Able to Perform ROS?: Yes Constitutional: Yes: Chills, Loss of Appetite, Weakness HEENTM: No: Symptoms Reported Respiratory: No: Symptoms reported Cardiac (ROS): No: Symptoms Reported ABD/GI: Yes: Diarrhea, Nausea, Vomiting, Indigestion, Abdominal cramping : No: Symptoms Reported Musculoskeletal: No: Symptoms Reported Integumentary: No: Symptoms Reported Neurological: No: Symptoms reported Endocrine: No: Symptoms Reported *Physical Exam - Vital Signs Last Vital Signs Temp Pulse Resp BP Pulse Ox 99.8 F H 103 H 16 120/66 100 03/30/19 15:31 03/30/19 15:31 03/30/19 15:31 03/30/19 15:31 03/30/19 15:31 - Physical Exam General Appearance: Yes: Nourished, Appropriately Dressed. No: Apparent Distress HEENT: negative: Pale Conjunctivae Neck: positive: Normal Thyroid Respiratory/Chest: positive: Lungs Clear, Normal Breath Sounds. negative: Respiratory Distress, Accessory Muscle Use Cardiovascular: positive: Regular Rhythm, Tachycardia. negative: Murmur Gastrointestinal/Abdominal: positive: Soft, Tenderness (Epigastric and right epigastric) Musculoskeletal: negative: CVA Tenderness Extremity: positive: Normal Inspection Integumentary: positive: Normal Color, Warm, Moist Neurologic: positive: Motor Strength 5/5 (Ambulatory) ED Treatment Course - LABORATORY CBC & Chemistry Diagram: 03/30/19 15:42 03/30/19 15:42 - ADDITIONAL ORDERS Additional order review: Laboratory Results 03/30/19 03/30/19 03/30/19 15:42 15:42 15:42 Sodium 140 Potassium 4.1 Chloride 106 Carbon Dioxide 27 Anion Gap 7 L BUN 11.9 Creatinine 0.8 Est GFR (CKD-EPI)AfAm 120.44 Est GFR (CKD-EPI)NonAf 103.92 Random Glucose 89 Calcium 8.6 Total Bilirubin 0.7 AST 146 H ALT 135 H Alkaline Phosphatase 123 H Total Protein 7.6 Albumin 3.8 Lipase 77 Urine Color Yellow Urine Appearance Cloudy Urine pH 6.0 D Ur Specific [place] 1.031 Urine Protein Negative Urine Glucose (UA) Negative Urine Ketones Negative Urine Blood Negative Urine Nitrite Negative Urine Bilirubin Negative Urine Urobilinogen 1.0 Ur Leukocyte Esterase Negative Urine HCG, Qual Negative 03/30/19 15:42 RBC 4.94 MCV 89.8 MCHC 33.8 RDW 12.9 MPV 9.4 Neutrophils % 84.0 H D Lymphocytes % 7.6 L D Monocytes % 7.4 Eosinophils % 0.8 Basophils % 0.2 - Medications Given in the ED: ED Medications Discontinued Medications Generic Name Dose Route Start Last Admin Trade Name Freq PRN Reason Stop Dose Admin Ibuprofen 800 mg 03/30/19 16:13 03/30/19 16:27 Caldolor Injection - IVPB 03/30/19 16:14 800 mg ONCE ONE Administration Ketorolac Tromethamine 30 mg 03/30/19 16:10 03/30/19 16:14 Toradol Injection - IVPUSH 03/30/19 16:11 Not Given ONCE ONE Ondansetron HCl 4 mg 03/30/19 15:28 03/30/19 16:13 Zofran Odt - SL 03/30/19 15:29 4 mg ONCE ONE Administration Pantoprazole Sodium 40 mg 03/30/19 16:10 03/30/19 16:27 Protonix Iv IVPUSH 03/30/19 16:11 40 mg ONCE ONE Administration Medical Decision Making - Medical Decision Making Chief complaint: Epigastric pain associated nausea vomiting diarrhea chills and mild fatigue since late last night. Patient states had fast food and feels as if she has either a stomach virus or food poisoning. History of cholecystectomy Exam: Patient with low-grade temp slightly tachycardic with epigastric tenderness on exam Plan: Labs, urine, antiemetics, IV Motrin due to Tylenol allergy along with Protonix Laboratory Tests 03/30/19 03/30/19 03/30/19 15:42 15:42 15:42 WBC 9.0 Hgb 15.0 Hct 44.4 Neutrophils % 84.0 H D Lymphocytes % 7.6 L D Sodium 140 Potassium 4.1 Chloride 106 Carbon Dioxide 27 Anion Gap 7 L BUN 11.9 Creatinine 0.8 AST 146 H ALT 135 H Alkaline Phosphatase 123 H Lipase 77 Urine Ketones Urine Blood Urine Nitrite Urine Bilirubin Ur Leukocyte Esterase Urine HCG, Qual Negative 03/30/19 15:42 WBC Hgb Hct Neutrophils % Lymphocytes % Sodium Potassium Chloride Carbon Dioxide Anion Gap BUN Creatinine AST ALT Alkaline Phosphatase Lipase Urine Ketones Negative Urine Blood Negative Urine Nitrite Negative Urine Bilirubin Negative Ur Leukocyte Esterase Negative Urine HCG, Qual 03/30/19 17:18 Patient ordered for limited abdominal ultrasound 03/30/19 18:40 Ultrasound negative for acute findings. Patient states feeling better. Patient will be discharged home with Zofran with recommendations to take Motrin and follow bland diet for the next 2 to 3 days Discharge - Discharge Information Problems reviewed: Yes Clinical Impression/Diagnosis: Viral gastroenteritis Abdominal pain Qualifiers: Abdominal location: epigastric Qualified Code(s): R10.13 - Epigastric pain Condition: Improved Disposition: HOME - Additional Discharge Information Prescriptions: Ondansetron HCl [Zofran] 4 mg PO TID PRN #12 tablet PRN Reason: Nausea And/Or Vomiting - Follow up/Referral Referrals: Markel Bautista MD [Primary Care Provider] - - Patient Discharge Instructions Patient Printed Discharge Instructions: DI for Viral Gastroenteritis -- Adult Additional Instructions: Please follow-up with your doctor as needed but otherwise you may take Zofran for nausea and eat a bland diet for the next 2 to 3 days. You may take Motrin if you have any discomfort . Otherwise eat potassium throughout the day if you have diarrhea. - Post Discharge Activity
[2019-03-30 18:51] VITALS: BP 112/56; PULSE 87; TEMP 99.3
== END 2019-03-30 19:13 | disposition home or self-care (01) ==
LOC: JER 15:18
PROC: 3E033GC Introduction of Other Therapeutic Substance into Peripheral Vein, Percutaneous Approach (ICD-10-PCS; principal; 2019-03-30)
PROC: 3E033GC Introduction of Other Therapeutic Substance into Peripheral Vein, Percutaneous Approach (ICD-10-PCS; 2019-03-30)
PROC: 3E0337Z Introduction of Electrolytic and Water Balance Substance into Peripheral Vein, Percutaneous Approach (ICD-10-PCS; 2019-03-30)
DX: R10.13 Epigastric pain (principal); A08.4 Viral intestinal infection, unspecified; B34.9 Viral infection, unspecified; Z88.8 Allergy status to other drugs, medicaments and biological substances
CPT/HCPCS: 36415; 76705-TC; 80053; 81003; 83690; 84703; 85025; 87086; 99283-25; J7030; Q0162

== ENCOUNTER 2022-11-16 11:46 | Emergency (ER) | payer OTHER ==
[2022-11-16 11:58] VITALS: BP 118/79; PULSE 85; RESP 18; TEMP 98.2; BMI 37.0
[2022-11-16 14:34] LABS: BASO % 0.9 % (0-2.0); EOS % 2.2 % (0-4.5); HEMATOCRIT 41.1 % (32.4-45.2); HEMOGLOBIN 13.8 GM/dL (10.7-15.3); LYMPH % 36.1 % (8-40); MCHC 33.5 g/dl (32.0-36.0); MEAN CELL VOLUME 89.4 fl (80-96); MEAN PLT VOLUME 8.8 fl (7.5-11.1); MONO % 8.4 % (3.8-10.2); NEUT % 52.4 % (42.8-82.8); PLATELET COUNT 293 10^3/uL (134-434); RBC 4.59 M/mm3 (3.60-5.2); RDW 13.5 % (11.6-15.6)
[2022-11-16 14:38] LABS: HCG,QUALITATIVE URINE Negative
[2022-11-16 14:43] LABS: EPI CELLS 3 /uL (0-25.1); HYALINE CASTS 0 /uL (0-3.1); PH,URINE 8.5 (5.0-8.0); URINE APPEARANCE CLEAR; URINE BACTERIA 163 /uL (0-1359); URINE BILIRUBIN NEGATIVE (NEGATIVE); URINE COLOR YELLOW; URINE GLUCOSE (UA) NEGATIVE (NEGATIVE); URINE KETONE NEGATIVE (NEGATIVE); URINE LEUK ESTERASE NEGATIVE (NEGATIVE); URINE NITRITE NEGATIVE (NEGATIVE); URINE PROTEIN NEGATIVE (NEGATIVE); URINE RBC 775 /uL (0-23.9); URINE WBC 4 /uL (0-25.8)
[2022-11-16 14:57] LABS: POTASSIUM 4.4 mmol/L (3.5-5.1)
[2022-11-16 14:59] LABS: ALBUMIN 3.8 g/dl (3.4-5.0); CALCIUM 8.7 mg/dL (8.5-10.1)
[2022-11-16 15:03] LABS: CREATININE 0.8 mg/dL (0.55-1.3)
[2022-11-16 15:04] LABS: BILIRUBIN,TOTAL 0.3 mg/dL (0.2-1); TOT PROT 7.4 g/dl (6.4-8.2)
[2022-11-16] MEDS ORDERED: IBUPROFEN 600 MG TABLET (FP) PO ONE ×2 (16:59→17:34)
== END 2022-11-16 17:30 | disposition home or self-care (01) ==
LOC: JER 11:46
DX: O20.9 Hemorrhage in early pregnancy, unspecified (principal); R10.30 Lower abdominal pain, unspecified; Z3A.01 Less than 8 weeks gestation of pregnancy
CPT/HCPCS: 36415; 76817-TC; 80053; 81003; 84702; 84703; 85025; 86850; 86900; 86901; 87077; 87086; 99284-25

== ENCOUNTER 2022-11-18 14:51 | Emergency (ER) | payer OTHER ==
[2022-11-18 14:55] VITALS: BP 116/74; PULSE 81; RESP 19; TEMP 97.8; BMI 37.0
== END 2022-11-18 16:44 | disposition home or self-care (01) ==
LOC: JERFT 14:51
DX: O03.89 Complete or unspecified spontaneous abortion with other complications (principal)
CPT/HCPCS: 36415; 84702; 99283-25

== ENCOUNTER 2022-11-30 12:47 | Emergency (ER) | payer OTHER ==
[2022-11-30 12:57] VITALS: BMI 30.9
[2022-11-30 14:35] LABS: BASO % 0.5 % (0-2.0); EOS % 2.3 % (0-4.5); HEMATOCRIT 41.6 % (32.4-45.2); HEMOGLOBIN 14.2 GM/dL (10.7-15.3); LYMPH % 32.4 % (8-40); MCH 30.3 pg (25.7-33.7); MEAN CELL VOLUME 89.1 fl (80-96); MEAN PLT VOLUME 9.4 fl (7.5-11.1); NEUT % 54.8 % (42.8-82.8); RBC 4.67 M/mm3 (3.60-5.2); RDW 13.2 % (11.6-15.6); WHITE BLOOD COUNT 7.2 K/mm3 (4.0-10.0)
[2022-11-30 14:37] LABS: INR 1.01 (0.83-1.09); PROTHROMBIN TIME (PATIENT) 11.7 SEC (9.7-13.0)
[2022-11-30 14:40] LABS: ACTIVATED PTT 35.9 SECONDS (25.2-36.5)
[2022-11-30 14:44] LABS: POTASSIUM 5.6 mmol/L (3.5-5.1)
[2022-11-30 14:46] LABS: ALBUMIN 3.7 g/dl (3.4-5.0); BLOOD UREA NITROGEN 14.4 mg/dL (7-18); CALCIUM 9.1 mg/dL (8.5-10.1)
[2022-11-30 14:49] LABS: CREATININE 0.8 mg/dL (0.55-1.3)
[2022-11-30 14:51] LABS: BILIRUBIN,TOTAL 0.5 mg/dL (0.2-1); TOT PROT 7.7 g/dl (6.4-8.2)
[2022-11-30 15:06] LABS: PLATELET COUNT 257 10^3/uL (134-434)
[2022-11-30] MEDS ORDERED: KETOROLAC TROMETHAMINE 30 MG/1 ML VIAL IVPUSH ONE (19:25)
[2022-11-30] MEDS ORDERED: KETOROLAC TROMETHAMINE 15 MG/ML VIAL ONE (19:28)
[2022-11-30 20:02] VITALS: BP 133/80; PULSE 79; RESP 18; TEMP 98.2
== END 2022-11-30 20:16 | disposition home or self-care (01) ==
LOC: JER 12:47
PROC: 3E0333Z Introduction of Anti-inflammatory into Peripheral Vein, Percutaneous Approach (ICD-10-PCS; principal; 2022-11-30)
DX: R10.32 Left lower quadrant pain (principal); K92.1 Melena
CPT/HCPCS: 36415; 74177-TC; 80053; 82272; 84703; 85025; 85610; 85730; 99285-25; Q9967